=== PATIENT | female | born 1985 | race Caucasian/White ===

== ENCOUNTER 2018-01-03 06:30 | Inpatient (IN) ==
[~2018-01-03 06:30] MED LIST: D5 1/2 NS 1000 ML 1,000 ML IV ONE; D5 1/2 NS 1000 ML 1,000 ML IV SCH; D5LR 1L W PITOCIN 10 UNITS/L 10 UNITS/1,000 ML BAG IV ONE; D5LR 1L W PITOCIN 10 UNITS/L 10 UNITS/1,000 ML BAG IV PRN; MORPHINE SULFATE INJ 2 MG INJ IVP PRN; NUBAIN INJ 200 MG VIAL MULTIDOSE IVP PRN; PHENERGAN INJ 25 MG IV PRN; PITOCIN IVP ONE; PITOCIN ONE; REGLAN INJ 10 MG VIAL IVP PRN
--- NOTE | 2018-01-03 07:31 | DR.OB ---
OB Quick Note - Assessment/Plan Assessment/Plan: L&D 01/03/18 at 7:15am S-No complaint. O-Afebrile,VSS HRA=[id number] with good LTV, +accel, no decel. CTX=occasional,mild CVX=3-4cm/50%/0/VTX AROM with clear fluid. IUPC and FSE placed. A-IUP at 40 2/7 weeks for induction P-Begin pitocin induction Anticipate
[2018-01-03] MEDS ORDERED: NUBAIN INJ 10 ONE (08:16)
[2018-01-03] MEDS: D5 1/2 NS 1000 ML 1,000 ML with PITOCIN 20 UNITS IV SCH ×4 (08:55→17:00)
[2018-01-03] MEDS ORDERED: MOTRIN TAB 800 MG PO PRN (09:04)
[2018-01-03] MEDS ORDERED: PHENERGAN INJ 25 MG IV PRN (09:04)
--- NOTE | 2018-01-03 09:38 | DR.OB ---
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 Head delivered over intact perineum. No nuchal cord. Nose and mouth bulb suctioned. Body delivered over intact perineum. Cord clamped x 2 and cut. handed to attendant. Cord sent for gases. Placenta delivered spontaneously / intact / 3 vessel cord. No CVX / vaginal / perineal tears. Viable male , VTX/OA, wt=8'11" and 8/9, stable to NBN. Mother stable to RR. LOF=[id number].
[2018-01-03] MEDS ORDERED: AMBIEN PO PRN (10:01)
[2018-01-03] MEDS ORDERED: MILK OF MAGNESIA PO PRN (10:01)
[2018-01-03] MEDS ORDERED: ADACEL or BOOSTRIX TDaP VACCINE IM ONE (10:01)
[2018-01-03] MEDS: DERMOPLAST SPRAY TOP PRN ×2 (11:38→21:33)
[2018-01-03] MEDS: ZANTAC PO SCH (20:28)
[2018-01-04] MEDS: D5 1/2 NS 1000 ML 1,000 ML with PITOCIN 20 UNITS IV SCH ×2 (01:22)
[2018-01-04 05:14] LABS: HEMATOCRIT 36.6 % (36.0-47.0); HEMOGLOBIN 12.5 g/dL (12.0-16.0)
[2018-01-04] MEDS: ZANTAC PO SCH (08:31)
[2018-01-04] MEDS ORDERED: PRENATAL PLUS PO SCH (09:00)
[2018-01-04 12:36] VITALS: BP 128/82
== END 2018-01-04 13:58 | disposition home or self-care (01) | DRG 807 ==
LOC: LD 06:45 → MED/SURG 10:04
PROVIDERS: ADMIT Specialist; ATTEND Specialist
DX: Z37.0 Single live birth; Z3A.40 40 weeks gestation of pregnancy; O80 Encounter for full-term uncomplicated delivery; Z23 Encounter for immunization
CPT/HCPCS: 36415; 59409; 85014; 85018; 90715; A4222; S0197; J2300; J2590; S5010